=== PATIENT | female | born 1990 | race Two or more races ===

== ENCOUNTER 2017-02-28 11:30 | Emergency (ER) | payer SELFPAY ==
[~2017-02-28] VITALS: Ht 167.6 cm; Wt 68.0 kg
[2017-02-28 12:10] VITALS: BP 130/87
--- NOTE | 2017-02-28 12:37 | Emergency Room Report ---
History of Present Illness General Chief Complaint: Skin Rash/Abscess Source: Patient Present Illness HPI 26-year-old female presents to the emergency department complaining of dry rash on the left ankle x1 month. Patient states that she was evaluated previously and was prescribed hydrocortisone for which she intermittently took however she believes that it did not help her symptoms. Denies lesions/rashes elsewhere on the body. Denies new medications or body washes or creams. Denies swelling of the lips, tongue , throat or airway. Denies wheezing, or shortness of breath. Denies recent travel, recent illness or ill contacts. denies blisters, oral lesions, or sloughing of the skin. Allergies: Coded Allergies: No Known Allergies (Unverified , 02/28/17) Patient History Past Medical History: see triage record Past Surgical History: none Pertinent Family History: none Last Menstrual Period: 2 months ago; IUD Now: No Reviewed Nursing Documentation: PMH: Agreed, PSxH: Agreed Nursing Documentation-PMH Past Medical History: No Stated History Review of Systems All Other Systems: negative except mentioned in HPI Physical Exam Vital Signs Date Time Temp Pulse Resp B/P (MAP) Pulse Ox O2 Delivery O2 Flow Rate FiO2 02/28/17 12:10 98.1 16 130/87 98 Room Air 02/28/17 12:10 74 Sp02 EP Interpretation: reviewed, normal General Appearance: no apparent distress, alert, GCS 15, non-toxic Head: normocephalic, atraumatic Eyes: bilateral eye normal inspection, bilateral eye PERRL ENT: hearing grossly normal, normal pharynx, no angioedema, normal voice, uvula midline, other - no swelling of the lips or tongue. Neck: full range of motion Respiratory: lungs clear, normal breath sounds, no wheezing, speaking full sentences Cardiovascular #1: regular rate, rhythm Rectal: deferred Musculoskeletal: back normal, gait/station normal, normal range of motion, non- tender Neurologic: alert, oriented x3, responsive, motor strength/tone normal, sensory intact, speech normal Skin: normal color, warm/dry, well hydrated, rash - dry plaque on the lateral left ankle, no erythema, no d/c, blisters or vesicles, no crusting. size is 2cm in diameter, localized. Medical Decision Making PA Attestation Dr. Camp is my supervising Physician whom patient management has been discussed with. Diagnostic Impression: Primary Impression: Rash and other nonspecific skin eruption Additional Impression: Dermatitis ER Course 26-year-old female presents to the emergency department complaining of dry rash on the left ankle x1 month. Patient states that she was evaluated previously and was prescribed hydrocortisone for which she intermittently took however she believes that it did not help her symptoms. Denies lesions/rashes elsewhere on the body. Denies new medications or body washes or creams. Denies swelling of the lips, tongue , throat or airway. Denies wheezing, or shortness of breath. Denies recent travel, recent illness or ill contacts. denies blisters, oral lesions, or sloughing of the skin. Ddx considered but are not limited to cellulitis, scabies, shingles, varicella, dermatitis, urticaria, eczema, tinea, viral exanthem, SJS Vital signs: are WNL, pt. is afebrile H&PE are most consistent with dermatitis vs eczema of the left lateral ankle, no evidence of infection or significant allergic reaction. ORDERS: none required at this time, the diagnosis is clinical ED INTERVENTIONS: None required at this time. -d/w pt. conservative treatment, and to follow up with a primary care provider. pt given a list of primary care clinics for follow up. d/w pt. to return to the ED with worsening or new symptoms. DISCHARGE: At this time pt. is stable for d/c to home. Will provide printed patient care instructions, and any necessary prescriptions. Care plan and follow up instructions have been discussed with the patient prior to discharge. Last Vital Signs Date Time Temp Pulse Resp B/P (MAP) Pulse Ox O2 Delivery O2 Flow Rate FiO2 02/28/17 12:10 98.1 74 16 130/87 98 Room Air Disposition: HOME, SELF-CARE Condition: Stable Scripts Triamcinolone Acet (Triamcinolone Acetonide) 60 Ml Lotion 1 APPLIC APPLIC BID, #60 ML Prov: Florina Guillory 02/28/17 Referrals: NOT CHOSEN IPA/MD,REFERRING (PCP) Patient Instructions: Rash Additional Instructions: Take medications as directed. Follow up with a Primary Care Provider For DERMATOLOGY REFERRAL in 3-5 days --Please review list of primary care clinics, if you do not already have a primary care provider Return sooner to ED if new symptoms occur, or current symptoms become worse. - Please note that this Emergency Department Report was dictated using [employer] assistant technology software, occasionally this can lead to erroneous entry secondary to interpretation by the dictation equipment. Florina Guillory Feb 28, 2017 12:37
[2017-02-28] MEDS ORDERED: KENALOG 0.1% LO60 ML APPLIC (12:38)
[2017-02-28 13:03] VITALS: BP 118/78
== END 2017-02-28 13:04 | disposition home or self-care (01) ==
LOC: EMR 12:29
DX: L30.9 Dermatitis, unspecified (principal)
CPT/HCPCS: 99283